=== PATIENT | male | born 1965 | race African-American/Black ===

== ENCOUNTER 2023-11-30 00:53 | Emergency (ER) | payer MEDICAID ==
[~2023-11-30] VITALS: Ht 154.9 cm; Wt 102.1 kg
[2023-11-30 01:02] VITALS: BP 135/67; PULSE 62; RESP 18; TEMP 97.5; O2SAT 99
[2023-11-30 01:24] LABS: BASOPHILS % (AUTO) 0.5 % (0.0-2.0); EOSINOPHILS # (AUTO) 0.2 K/uL (0-0.4); EOSINOPHILS % (AUTO) 2.8 % (0.0-4.0); HEMATOCRIT 39.8 % (36-52); HEMOGLOBIN 13.3 g/dL (12.0-18.0); LYMPHOCYTES # (AUTO) 2.3 K/uL (2.0-11.5); LYMPHOCYTES % (AUTO) 42.2 % (20.5-51.1); MEAN CORPUSCULAR HEMOGLOBIN 29 pg (27-31); MEAN CORPUSCULAR HGB CONC 34 g/dL (33-37); MONOCYTES # (AUTO) 0.4 K/uL (0.8-1.0); MONOCYTES % (AUTO) 7.5 % (1.7-9.3); NEUTROPHILS # (AUTO) 2.5 K/uL (1.8-7.7); PLATELET COUNT (AUTO) 185 K/uL (140-450); RED BLOOD CELL COUNT(AUTO) 4.62 MIL/uL (4.20-6.10); WHITE BLOOD COUNT (AUTO) 5.4 K/uL (4.8-10.8)
[2023-11-30] MEDS: MORPHINE SULFATE 4 MG/ML SYR IVP ONE (01:27)
[2023-11-30] MEDS: ONDANSETRON 4 MG/2 ML VIAL IVP ONE (01:27)
[2023-11-30 01:36] LABS: APPEARANCE,URINE CLEAR (CLEAR); BILIRUBIN,URINE NEGATIVE (NEGATIVE); BLOOD, URINE NEGATIVE (NEGATIVE); COLOR,URINE YELLOW (YELLOW); LEUKOCYTE ESTERASE ,URINE NEGATIVE (NEGATIVE); NITRITE, URINE NEGATIVE (NEGATIVE); PROTEIN,URINE TRACE (NEGATIVE); UGLUCOSE 3+ (NEGATIVE); UROBILINOGEN,URINE 0.2 EU/dL (0.2 - 1)
[2023-11-30 01:39] LABS: ANION GAP 9.6 (8-16); CALCIUM 9.4 mg/dL (8.5-10.1); CARBON DIOXIDE 29.5 mmol/L (21-32); CREATININE 1.3 mg/dL (0.6-1.3); POTASSIUM 4.1 mmol/L (3.5-5.1)
[2023-11-30 01:44] LABS: ALBUMIN 3.8 g/dL (3.4-5.0); BILIRUBIN,DIRECT 0.2 mg/dL (0.0-0.3); TOTAL BILIRUBIN 0.6 mg/dL (0.0-1.0); TOTAL PROTEIN, SERUM 7.4 g/dL (6.4-8.2)
[2023-11-30] MEDS: LACTULOSE 20 GM/30 ML UDC PO ONE (02:34)
[2023-11-30] MEDS ORDERED: LACT-58 PO (02:47)
[2023-11-30 03:08] VITALS: BP 135/67; PULSE 62; RESP 18; TEMP 97.5; O2SAT 99
== END 2023-11-30 03:08 | disposition home or self-care (01) ==
LOC: MED 00:53
DX: K42.9 Umbilical hernia without obstruction or gangrene (principal)
CPT/HCPCS: 36415; 74176; 80048; 80076; 81003; 85025; 96374; 96375; 99285; J2270; J2405